=== PATIENT | female | born 1960 | race Caucasian/White ===

== ENCOUNTER 2023-06-03 05:55 | Day surgery (SDC) | payer OTHER ==
[2023-06-02 13:58] LABS: BASOPHILS # (AUTO) 0.1 X10'3 (0-0.2); BASOPHILS % (AUTO) 0.9 % (0-1); EOSINOPHILS # (AUTO) 0.2 X10'3 (0-0.9); EOSINOPHILS % (AUTO) 2.8 % (0-6); HEMATOCRIT 42.5 % (35.0-45.0); HEMOGLOBIN 13.9 g/dl (12.0-16.0); LYMPHOCYTES % (AUTO) 30.5 % (21-51); MEAN CORPUSCULAR HEMOGLOBIN 29.9 PG (27.0-31.0); MEAN CORPUSCULAR HGB CONC 32.8 g/dL (33.0-36.5); MEAN CORPUSCULAR VOLUME 91.1 FL (78-98); MEAN PLATELET VOLUME 8.8 FL (7.4-10.4); MONOCYTES # (AUTO) 0.6 X10'3 (0-0.9); MONOCYTES % (AUTO) 9.7 % (2-12); NEUTROPHILS # (AUTO) 3.6 X10'3 (1.8-7.7); NEUTROPHILS % (AUTO) 56.1 % (42-75); PLATELET COUNT 352 X10'3 (140-440); RED BLOOD COUNT 4.67 X10'6 (4.20-5.60); RED CELL DISTRIBUTION WIDTH 14.4 % (11.5-14.5); WHITE BLOOD COUNT 6.4 X10'3 (4.5-11.0)
[2023-06-02 14:08] LABS: ALBUMIN 3.4 G/DL (3.4-5.0); APTT 26 SECONDS (22-32); BLOOD UREA NITROGEN 15 MG/DL (7-18); BUN/CREATININE RATIO 18.8 (10.0-20.0); CALCIUM 9.5 MG/DL (8.5-10.1); GLUCOSE 107 MG/DL (70-104); PROTHROMBIN TIME 10.4 SECONDS (9.0-12.0); TOTAL CARBON DIOXIDE 28.8 MMOL/L (24-32); eGFR 73 ML/MIN
[2023-06-02 14:16] LABS: ANION GAP 8 (8-16); CHLORIDE 105 MMOL/L (99-107); POTASSIUM 4.1 MMOL/L (3.5-5.1); SODIUM 142 MMOL/L (135-145)
[~2023-06-03] VITALS: Ht 167.6 cm; Wt 104.9 kg
[2023-06-03] VITALS (12 sets, daily range): BP systolic 93–134; BP diastolic 51–70; PULSE 38–51; RESP 10–17; TEMP 97.6; O2SAT 92–96
[2023-06-03] MEDS ORDERED: LORazepam 0.5 MG tablet PO PRN (06:25)
[2023-06-03] MEDS ORDERED: diphenhydrAMINE 25mg capsule PO PRN (06:25)
[2023-06-03] MEDS ORDERED: normal saline 1,000 ML IV SCH (06:25)
[2023-06-03] MEDS ORDERED: OMEP20CA16 PO (06:37)
[2023-06-03] MEDS ORDERED: OXYB15TA19 PO (06:37)
[2023-06-03] MEDS ORDERED: METO25TA6 PO (06:37)
[2023-06-03] MEDS ORDERED: HYDR12.55 PO (06:37)
[2023-06-03] MEDS ORDERED: DOXA2TAB92 PO (06:37)
[2023-06-03] MEDS ORDERED: EZET10TA48 PO (06:37)
[2023-06-03] MEDS ORDERED: ROSU20TA73 PO (06:37)
[2023-06-03] MEDS ORDERED: TRAZ-256 PO (06:37)
[2023-06-03] MEDS ORDERED: GABA-530 PO (06:37)
[2023-06-03] MEDS ORDERED: LEVO25TA7 PO (06:37)
[2023-06-03] MEDS ORDERED: verapamil 2.5 mg/ml inj IV ONE (07:25)
[2023-06-03] MEDS ORDERED: fentaNYL/PF 50MCG/1 ML 2ML syringe ONE (07:26)
[2023-06-03] MEDS ORDERED: midazolam 1 mg/ML 2ml injection ONE (07:26)
[2023-06-03] MEDS ORDERED: iohexol 350 MG/ML 50ML vial IV ONE (07:26)
[2023-06-03] MEDS ORDERED: iohexol 350MG/ML 100ml bottle IV ONE (07:26)
[2023-06-03] MEDS ORDERED: heparin 1,000unit/ml 10ml vial 10 ML ONE (07:26)
[2023-06-03] MEDS ORDERED: nitroGLYCERIN 500mcg/5mL D5W 10 ML IV ONE (07:27)
[2023-06-03] MEDS ORDERED: LIDOcaine 1% (10mg/ml) 2ml vial ONE ×2 (07:31→07:59)
[2023-06-03] MEDS ORDERED: HYDROmorphone 1 mg/ml syringe ONE (08:25)
[2023-06-03 11:36] LABS: ISTAT HGB MIX 12.9 g/dl (12.0-16.0); ISTAT Hct MIX 38 %PCV (35-45); ISTAT O2 SATURATION MIX VENOUS 88 % (60-80); ISTAT SOURCE BLNK
[2023-06-03 11:36] LABS: ISTAT HGB MIX 12.6 g/dl (12.0-16.0); ISTAT Hct MIX 37 %PCV (35-45); ISTAT O2 SATURATION MIX VENOUS 62 % (60-80); ISTAT SOURCE VEN
== END 2023-06-03 14:35 | disposition home or self-care (01) ==
LOC: SSTAY O 05:55
PROVIDERS: ATTEND Internal Medicine Cardiovascular Disease
DX: I34.1 Nonrheumatic mitral (valve) prolapse (principal); I25.10 Atherosclerotic heart disease of native coronary artery without angina pectoris; I10 Essential (primary) hypertension; E78.5 Hyperlipidemia, unspecified; M54.30 Sciatica, unspecified side; Z79.899 Other long term (current) drug therapy; Z79.01 Long term (current) use of anticoagulants; Z98.890 Other specified postprocedural states
CPT/HCPCS: 36415; 76937; 80048; 82803; 85014; 85025; 85610; 85730; 93005; 93460; 99152; 99153; J1170; J1644; J2250; J3010; J3490; J7030; Q0163; Q9967; A6258; A6402; C1725; C1751; C1894

== ENCOUNTER 2024-12-15 06:05 | Day surgery (SDC) | payer OTHER ==
[2024-12-14 15:58] LABS: BASOPHILS # (AUTO) 0.1 X10'3 (0-0.2); BASOPHILS % (AUTO) 0.6 % (0-1); EOSINOPHILS # (AUTO) 0.2 X10'3 (0-0.9); EOSINOPHILS % (AUTO) 2.3 % (0-6); HEMOGLOBIN 13.9 g/dl (12.0-16.0); LYMPHOCYTES # (AUTO) 2.5 X10'3 (1.1-4.8); LYMPHOCYTES % (AUTO) 28.6 % (21-51); MEAN CORPUSCULAR HEMOGLOBIN 29.7 PG (27.0-31.0); MEAN CORPUSCULAR HGB CONC 33.8 g/dL (33.0-36.5); MEAN CORPUSCULAR VOLUME 87.8 FL (78-98); MEAN PLATELET VOLUME 8.5 FL (7.4-10.4); MONOCYTES # (AUTO) 0.8 X10'3 (0-0.9); MONOCYTES % (AUTO) 9.3 % (2-12); NEUTROPHILS # (AUTO) 5.2 X10'3 (1.8-7.7); NEUTROPHILS % (AUTO) 59.2 % (42-75); PLATELET COUNT 313 X10'3 (140-440); RED BLOOD COUNT 4.67 X10'6 (4.20-5.60); RED CELL DISTRIBUTION WIDTH 14.4 % (11.5-14.5); WHITE BLOOD COUNT 8.7 X10'3 (4.5-11.0)
[~2024-12-15] VITALS: Ht 167.6 cm; Wt 108.1 kg
[2024-12-15] VITALS (12 sets, daily range): BP systolic 119–158; BP diastolic 53–68; PULSE 42–64; RESP 14–16; TEMP 97.3; O2SAT 91–94
[~2024-12-15 06:05] MED LIST: DOXA2TAB92 PO; EZET10TA48 PO; GABA-530 PO; HYDR12.55 PO; LEVO25TA7 PO; METO25TA6 PO; OMEP20CA16 PO; OXYB15TA19 PO; ROSU20TA98 PO; TRAZ-256 PO
[2024-12-15] MEDS ORDERED: ceFAZolin 2gm in dextrose, iso 50 ML IV ONE (06:40)
[2024-12-15] MEDS: normal saline 1000ml 1,000 ML IV SCH (07:21)
[2024-12-15 07:22] LABS: ALBUMIN 3.4 G/DL (3.4-5.0); ANION GAP 5 (8-16); APTT 27 SECONDS (22-32); BLOOD UREA NITROGEN 25 MG/DL (7-18); BUN/CREATININE RATIO 37.9 (10.0-20.0); CALCIUM 8.8 MG/DL (8.5-10.1); CHLORIDE 110 MMOL/L (99-107); CREATININE 0.66 MG/DL (0.40-0.90); GLUCOSE 108 MG/DL (70-104); POTASSIUM 4.1 MMOL/L (3.5-5.1); PROTHROMBIN TIME 10.3 SECONDS (9.0-12.0); SODIUM 143 MMOL/L (135-145); eCRCL 82 ML/MIN; eGFR 90 ML/MIN
[2024-12-15] MEDS ORDERED: fentaNYL/PF 50MCG/1 ML 2ML syringe ONE (07:28)
[2024-12-15] MEDS ORDERED: midazolam 1 mg/ML 2ml injection ONE ×2 (07:28→09:09)
[2024-12-15] MEDS ORDERED: ceFAZolin 1000mg inj ONE (07:29)
[2024-12-15] MEDS ORDERED: LIDOcaine 1% W/epiNEPHrine 1:100,000 20ml vial ONE (07:29)
[2024-12-15] MEDS ORDERED: iohexol 350 MG/ML 50ML vial IV ONE (07:29)
[2024-12-15] MEDS ORDERED: diphenhydrAMINE 50 mg/ml inj ONE (08:38)
[2024-12-15] MEDS ORDERED: HYDROcodone/acetaminophen 5mg/325mg tablet PO PRN (10:35)
[2024-12-15] MEDS ORDERED: CEPH-585 PO (10:36)
[2024-12-15] MEDS ORDERED: SOTA80TA26 PO (10:39)
[2024-12-15] MEDS: vancomycin/NS 1 GM ADD-VANTAGE 250 ML X 1 DOSE IV ONE (11:18)
[2024-12-15] MEDS: HYDROcodone/acetaminophen 10/325mg tab PO PRN (13:47)
== END 2024-12-15 16:20 | disposition home or self-care (01) ==
LOC: SSTAY O 06:05
PROVIDERS: ATTEND Internal Medicine Cardiovascular Disease
DX: I49.5 Sick sinus syndrome (principal); I10 Essential (primary) hypertension; E78.5 Hyperlipidemia, unspecified; Z78.0 Asymptomatic menopausal state; Z79.01 Long term (current) use of anticoagulants
CPT/HCPCS: 33208; 36415; 71046; 80048; 85025; 85610; 85730; 93005; 99152; 99153; C1785; C1898; J0690; J1200; J2250; J3010; J3370; J3490; J7030; Q9967; A4565; A4615; A6449

== ENCOUNTER 2025-01-31 13:53 | Inpatient (IN) | payer OTHER ==
[~2025-01-31] VITALS: Ht 167.6 cm; Wt 111.1 kg
[~2025-01-31 13:53] MED LIST changes: -DOXA2TAB92 PO; -OXYB15TA19 PO; +SOTA80TA26 PO
--- NOTE | 2025-01-31 14:21 | Physician Documentation ---
History of Present Illness ~ Chief Complaint: Chest Pain Stated Complaint: CP Time Seen by MD: 14:55 Source: patient, family HPI 64-year-old female History of hyperlipidemia, hypertension, mitral regurgitation, supraventricular tachycardia with sick sinus syndrome status post pacemaker placement December 15, 2024, CAD, strong family history of coronary artery disease presenting for chest pain. She reports pain in her substernal chest described as pressure radiating to her neck and left shoulder. Her sympt oms resolved just prior to arrival and has been intermittent over the last 24 hours Medication Reconciliation Allergies: Coded Allergies: No Known Allergies (Unverified , 01/31/25) Scheduled Ezetimibe (Ezetimibe), 1 TAB PO DAILY, (Reported) Gabapentin (Gabapentin), 1 CAP PO DAILY, (Reported) Hydrochlorothiazide (Hydrochlorothiazide), 12.5 MG PO DAILY, (Reported) Levothyroxine Sodium (Levothyroxine Sodium), 1 TAB PO DAILY, (Reported) Metoprolol Tartrate (Metoprolol Tartrate), 1 TAB PO BID, (Reported) Omeprazole (Omeprazole), 1 CAP PO DAILY, (Reported) Rosuvastatin Calcium (Rosuvastatin Calcium), 1 TAB PO HS, (Reported) Sotalol HCl (Betapace), 0.5 TAB PO Q12H Trazodone HCl (Trazodone HCl), 1 TAB PO HS, (Reported) Review of Systems All Other Systems at this time: Reviewed and Negative Respiratory: Reports: shortness of breath; Denies: cough, orthopnea Cardiovascular: Reports: chest pain Gastrointestinal: Denies: abdominal pain Physical Exam Vital Signs: Temperature: 97.8, Source: Temporal, Heart Rate: 64, Respiratory Rate: 18, BP: 151/46, Pulse Oximetry: 98, Weight: 111.100 Physical Exam Well-appearing no distress resting comfortably in bed No JVD Moist mucous membranes Pulmonary clear to auscultation bilaterally Cardiac no murmur Abdomen is soft nontender Lower extremity no edema Awake alert oriented Progress Results/Orders Reviewed/noted all lab results: Yes Results/Orders Orders - WHIT SHARIF MD Chest,Single View (01/31/25 14:36) Monitor (01/31/25 14:21) Saline Lock (01/31/25 14:21) Oxygen (01/31/25 14:21) Page Hospitalist (01/31/25 17:46) Fill Out Med Reconciliation (01/31/25 17:46) Completed Orders - WHIT SHARIF MD Chest,Single View (01/31/25 14:36) Cbc/Diff (01/31/25 14:21) BMP (01/31/25 14:21) PBNP (01/31/25 14:21) Electrocardiogram (01/31/25 14:21) Hs Troponin I W Calculations (01/31/25 14:21) Hs Troponin I W Calculations (01/31/25 16:21) Hs Troponin I W Calculations (01/31/25 17:21) Vital Signs 01/31/25 01/31/25 01/31/25 01/31/25 14:11 14:39 16:37 17:54 Temp 97.8 Pulse 64 95 60 Resp 18 19 16 17 B/P (MAP) 151/46 130/71 (90) 126/63 (84) Pulse Ox 98 95 93 01/31/25 17:57 Pulse 60 Resp 14 B/P (MAP) 152/68 (96) Pulse Ox 99 Laboratory Tests Test 01/31/25 14:00 01/31/25 16:30 01/31/25 17:27 White Blood Count 10.5 Red Blood Count 4.54 Hemoglobin 13.2 Hematocrit 40.3 Mean Corpuscular Volume 88.9 Mean Corpuscular Hemoglobin 29.1 Mean Corpuscular Hemoglobin Concent 32.7 L Red Cell Distribution Width 14.1 Platelet Count 339 Mean Platelet Volume 8.8 Neutrophils (%) (Auto) 63.8 Lymphocytes (%) (Auto) 25.5 Monocytes (%) (Auto) 7.5 Eosinophils (%) (Auto) 2.8 Basophils (%) (Auto) 0.4 Neutrophils # (Auto) 6.7 Lymphocytes # (Auto) 2.7 Monocytes # (Auto) 0.8 Eosinophils # (Auto) 0.3 Basophils # (Auto) 0.0 CBC Comment Sodium Level 142 Potassium Level 4.0 Chloride Level 105 Carbon Dioxide Level 30.0 Anion Gap 7 L Blood Urea Nitrogen 19 H Creatinine 0.80 Estimated GFR/1.73 m2 72 BUN/Creatinine Ratio 23.8 H Glucose Level 127 H Calcium Level 9.5 Troponin I High Sensitivity 9 9 8 Pro-B-Type Natriuretic Peptide 42 Albumin 3.9 Chemistry Comments Troponin I High Sens Percent Delta 0 11 Troponin I Hi Sens Absolute Change 0 -1 EKG/XRAY/CT/US/VASC/MRI EKG : Additional Comment EKG independently interpreted by myself time 2:03 p.m. indication chest pain normal sinus rhythm rate 65 left axis deviation poor R-wave progression no ST-T abnormalities Chest X-Ray : Additional Comments Chest x-ray independently interpreted by myself shows no pneumothorax no consolidation normal cardiomediastinal silhouette Heart Score: Heart Score Response (Comments) Value History Highly Suspicious 2 EKG Normal 0 Age 45-64 1 Risk Factors >3 or Hx ASHD 2 Total 5 Medical Decision Making Additional info obtained from: old records (Cardiology 11/2024) Additional Information Pulmonary embolism, acute coronary syndrome other causes of chest Departure Disposition: ADMITTED INPATIENT Admitted to Inpatient Unit: to hospitalist Impression: Primary Impression: Moderate risk chest pain Referrals: NO PRIMARY CARE PROVIDER (PCP) Additional Comment Medical Screen Exam History: This 64-year-old female with a history of pacemaker presents with one day of intermittent left-sided chest pain with radiation to left jaw, patient reports no history of [place] Exam: VITALS: Reviewed and as above. GENERAL: Alert, nontoxic appearing, no apparent distress. RESPIRATORY: No increased work of breathing, no respiratory distress, speaking in full clear sentences ACS protocol initiated by nursing staff, MSE performed in triage and patient returned to ED lobby by nursing staff while awaiting available ED room The note accurately reflects work and decisions made by me.SHELLEY Hays 01/31/25 14:21 Signature Scribe Signature: na Attestation: NATHAN Causey Jan 31, 2025 14:21 WHIT SHARIF MD Jan 31, 2025 17:37
--- NOTE | 2025-01-31 14:23 | ELECTROCARDIOGRAPH REPORT ---
[facility] Test Date: 2025-01-31 Test Time: 14:03:51 Pat Name: HARDIK VUONG Department: EMERGENCY ROOM Room: Gender: F Natural Gas Technician: RUEL : 1960 Requested By: WHIT SHARIF Order Number: [id number] Reading MD: Measurements Intervals [place] Rate: 65 P: 31 IA: 172 QRS: -18 QRSD: 91 T: 42 QT: 423 QTc: 440 Interpretive Statements Sinus rhythm Borderline left axis deviation Anteroseptal infarct, old Please click the below link to view image of tracing.
[2025-01-31 14:45] LABS: BASOPHILS % (AUTO) 0.4 % (0-1); EOSINOPHILS # (AUTO) 0.3 X10'3 (0-0.9); EOSINOPHILS % (AUTO) 2.8 % (0-6); HEMATOCRIT 40.3 % (35.0-45.0); HEMOGLOBIN 13.2 g/dl (12.0-16.0); LYMPHOCYTES # (AUTO) 2.7 X10'3 (1.1-4.8); LYMPHOCYTES % (AUTO) 25.5 % (21-51); MEAN CORPUSCULAR HEMOGLOBIN 29.1 PG (27.0-31.0); MEAN CORPUSCULAR HGB CONC 32.7 g/dL (33.0-36.5); MEAN CORPUSCULAR VOLUME 88.9 FL (78-98); MEAN PLATELET VOLUME 8.8 FL (7.4-10.4); MONOCYTES # (AUTO) 0.8 X10'3 (0-0.9); MONOCYTES % (AUTO) 7.5 % (2-12); NEUTROPHILS # (AUTO) 6.7 X10'3 (1.8-7.7); NEUTROPHILS % (AUTO) 63.8 % (42-75); PLATELET COUNT 339 X10'3 (140-440); RED BLOOD COUNT 4.54 X10'6 (4.20-5.60); RED CELL DISTRIBUTION WIDTH 14.1 % (11.5-14.5); WHITE BLOOD COUNT 10.5 X10'3 (4.5-11.0)
--- NOTE | 2025-01-31 14:46 | RADIOLOGY REPORT ---
DI CHEST,SINGLE VIEW, HISTORY: CP COMPARISON: None None TECHNICAL DATA: 1 view of the chest was obtained. FINDINGS: Lines and tubes: A cardiac pacer is seen. Cardiomediastinal silhouette: normal Pulmonary vasculature: normal Lung expansion: normal Lung airspace: normal Lung interstitium: normal Pleura: normal Pneumothorax: no Bones: Unremarkable Other: no IMPRESSION: No acute intrathoracic abnormality.
[2025-01-31 15:09] LABS: ALBUMIN 3.9 G/DL (3.4-5.0); ANION GAP 7 (8-16); BLOOD UREA NITROGEN 19 MG/DL (7-18); BUN/CREATININE RATIO 23.8 (10.0-20.0); CALCIUM 9.5 MG/DL (8.5-10.1); CHLORIDE 105 MMOL/L (99-107); GLUCOSE 127 MG/DL (70-104); PRO BRAIN NATRIURETIC PEPTIDE 42 PG/ML (0-125); SODIUM 142 MMOL/L (135-145); eCRCL 67 ML/MIN; eGFR 72 ML/MIN
[2025-01-31] MEDS ORDERED: acetaminophen 325mg tablet PO PRN ×2 (19:15)
[2025-01-31] MEDS ORDERED: magnesium hydroxide 30ml (MOM) UD suspension PO PRN (19:15)
[2025-01-31] MEDS ORDERED: magnesium sulf-water 2g/50mL 50 ML IV PRN (19:15)
[2025-01-31] MEDS ORDERED: magnesium sulf-water 4G/100mL 100 ML IV PRN (19:15)
[2025-01-31] MEDS ORDERED: morphine 2 MG/ML inj. syringe IV PRN (19:15)
[2025-01-31] MEDS ORDERED: mag hydrox/Alum hydrox/simeth 30ml oral suspension PO PRN (19:15)
[2025-01-31] MEDS ORDERED: HYDROmorphone inj. 0.5 MG/0.5 ML DISP.SYRIN IV PRN (19:15)
[2025-01-31] MEDS ORDERED: potassium Cl 40MEQ/1/2NS 520ml 520 ML IV PRN (19:15)
[2025-01-31] MEDS ORDERED: potassium Cl 20 mEq SR tablet PO PRN ×2 (19:15)
[2025-01-31] MEDS ORDERED: ondansetron/PF 4mg/2ml inj IV PRN (19:15)
[2025-01-31] MEDS ORDERED: magnesium Cl slow-release 64mg tablet PO PRN (19:15)
[2025-01-31 19:47] LABS: HEMOGLOBIN A1C 6.1 % (4.5-6.2)
[2025-01-31] MEDS: docusate sod 100mg capsule PO SCH (20:00)
[2025-01-31] MEDS: K and/or MAG REPLACEMENT MC SCH (20:00)
[2025-01-31 20:09] LABS: APTT 28 SECONDS (22-32); PROTHROMBIN TIME 10.5 SECONDS (9.0-12.0)
[2025-01-31] MEDS ORDERED: metoprolol tartrate 50mg tablet PO ONE (21:15)
[2025-01-31] MEDS: atorvastatin 20mg tablet PO SCH (21:57)
[2025-01-31] MEDS: ezetimibe 10mg tablet PO SCH (21:57)
[2025-01-31 22:00] VITALS: BP 160/61; PULSE 63; RESP 12; RESP 16; TEMP 97.3; O2SAT 92; O2SAT 95
--- NOTE | 2025-01-31 22:47 | HISTORY AND PHYSICAL-Residence ---
History & Physical Providers to CC Resident Creating Document: ANTWAN MCGRATH, ANGELI ~ History of Present Illness Reason for Admit\Complaint: Chest pain History of Present Illness 64-year-old female with past medical history of hypertension, hyperlipidemia, COPD, CAD, atrial fibrillation, status post ppm, with a strong family history of coronary artery disease and hyperlipidemia presented to the ER with chief complaints of chest pain. Endorses chest pain around 1232 to 1:00 p.m. on today while she was driving to home after having a alliance party, heavy, constricting type of pain over retrosternum, rated 7- 8/10, on and off. Chest pain is associated with shortness of breathe while having conversation with her , diaphoresis and radiating to throat and jaw. She denied syncope, palpitations, dizziness abdominal pain, abdominal distention, fever, cough, wheeze. She reports swelling of the left foot occasionally. She do reports strong family history of coronary artery disease- quadruple bypass and stents for mother. Her Father had a bypass graft. Her brother is with five-vessel bypass, heart failure, hereditary hypercholesterolemia. Discussed Code status with patient and she wants to be in full code Allergies: Coded Allergies: No Known Allergies (Unverified , 01/31/25) Home Medications Home Medications Active Betapace (Sotalol HCl) 80 Mg Tablet 0.5 Tab PO Q12H 90 Days Reported Rosuvastatin Calcium 20 Mg Tablet 1 Tab PO HS Ezetimibe 10 Mg Tablet 1 Tab PO DAILY Gabapentin 100 Mg Capsule 1 Cap PO DAILY Hydrochlorothiazide 12.5 Mg Tablet 12.5 Mg PO DAILY Metoprolol Tartrate 25 Mg Tablet 1 Tab PO BID Omeprazole 20 Mg Capsule. 1 Cap PO DAILY Trazodone HCl 100 Mg Tablet 1 Tab PO HS Levothyroxine Sodium 25 Mcg Tablet 1 Tab PO DAILY Past Medical History Past Medical History COPD CAD AFib Sick sinus syndrome, bradycardia Status post ppm(on December 15, 2024 Supraventricular arrhythmia Past Surgical History Surgical History Comment Left knee cartilage repair in 2001 Left shoulder repair in 2019 Cholecystectomy in 2019 Family History Family History: Patient reports no known family medical history. Past Social History Social History Comment One glass of wine every two months Smoking: Non-Smoker Alcohol Use: Occasionally Drug Use: None Lives with: Spouse Lives In: Home ROS All Other Systems: Reviewed and Negative ROS Reviewed in full and negative except positive pertinent as in HPI Respiratory: Reports: shortness of breath; Denies: cough, orthopnea Cardiovascular: Reports: chest pain Gastrointestinal: Denies: abdominal pain Exam Vitals: Vital Signs Date Time Temp Pulse Resp B/P (MAP) Pulse Ox O2 Delivery O2 Flow Rate FiO2 01/31/25 22:30 64 01/31/25 20:00 13 129/61 (83) 93 0 01/31/25 14:11 97.8 General: GENERAL: Awake, alert, oriented, GCS 15, no apparent distress, non-toxic appearing, answers questions, follows commands appropriately. HEENT: Atraumatic, normocephalic, pupils equal, extraocular muscles intact, sclerae anicteric, mucus membranes moist, oropharynx is clear, no stridor. NECK: supple, full active range of motion, trachea midline, no thyromegaly, no lymphadenopathy, no JVD. CARDIOVASCULAR: Tachycardic and regular rate/rhythm, no murmurs/gallops/rubs, Pulses are 2+ in all extremities and symmetric. Capillary refill less than 2 seconds. PULMONARY: Nonlabored, good air movement ,no respiratory distress, speaking in full sentences, clear to auscultation bilaterally, no wheezing, no ronchi, no rales, no accessory muscle use. GASTROINTESTINAL: Soft, non-tender, non-distended, normal active bowel sounds, no organomegaly, no pulsatile masses, no CVA tenderness. NEUROLOGIC: Normal facial symmetry. Moves all extremities symmetrically and with purpose. No truncal ataxia. Speech is fluid without evidence of dysarthria or aphasia, no focal deficits appreciated. MUSCULOSKELETAL: There is full range of motion of all extremities. There is no joint pain or joint swelling or joint erythema. There is no muscle pain or tenderness or swelling. EXTREMITIES: warm, well-perfused, no cyanosis, no clubbing, no edema, no acute deformities. Skin: warm, dry, no rashes or lesions, no jaundice, no petechiae orpurpura. No ecchymosis. PSYCHIATRIC: Normal affect, normal insight, normal concentration. Diagnostic Data Last Recorded Lab Results: 01/31/25 1400 01/31/25 1400 Diagnostic Data: Laboratory Tests Test 01/31/25 19:44 Prothrombin Time 10.5 SECONDS (9.0-12.0) INR International Normalized Ratio 1.0 INR Activated Partial Thromboplast Time 28 SECONDS (22-32) Coagulation Comments Advance Care Planning Advanced Care planning: Add on additional 30 min Additional Plan Acute coronary syndrome-Unstable angina Heart score of six Blood pressure is in 140s Heart rate is in 60s CBC and CMP is normal EKG does not showed STEMI, troponins are negative and proBNP is normal On aspirin 81 mg, metoprolol 25 mg, atorvastatin 80 mg, ezetimibe 10 mg, morphine p.r.n., nitro 0.4 mg sublingual p.r.n. Consult manager etl in the a.m. for Lexiscan / Cardiac catheterization in view of past history of coronary artery disease with very strong family history Hyperlipidemia Possible familial hypercholesterolemia/ hypertriglyceridemia Strong family history of hyperlipidemia Ordered lipid panel Continued ezetimibe 10 mg and atorvastatin 80 mg Hypertension On metoprolol 25 mg p.o. b.i.d. Blood pressure is normalizing to 120s Hypothyroidism TSH is ordered and on home medications of levothyroxine 25 mg Peripheral neuropathy We will continue gabapentin 100 mg p.o. daily after medication reconciliation COPD Not in acute exacerbation she is not using any inhalers CAD Atrial fibrillation status post ppm On home medications of sotalol 40 mg p.o. q.12h on metoprolol 25 mg p.o. b.i.d. Continuing both sotalol and metoprolol Heart rate is controlled Code status: Full code DVT prophylaxis: Heparin subQ Diet: Heart healthy diet PT: Ordered Prognosis: Guarded Antwan RODGERS resident Date of Service: Jan 31, 2025 Billing Provider: VANDANA HEADLEY MD Common Visit Codes: [id number] INP/OBS CARE (HIGH) Assessment/Plan Assessment . Evaluated the patient with the help of residents. Discussed the case with them. Reviewed notes by Dr.Suragani MUNOZ. Agree with his assessments and plans I also reviewed the patient's records. No additional points at this time ANTWAN MCGRATH, ANGELI Jan 31, 2025 22:47 VANDANA HEADLEY MD Feb 01, 2025 06:19
[2025-02-01] VITALS (14 sets, daily range): BP systolic 115–182; BP diastolic 50–84; PULSE 60–75; RESP 16–20; TEMP 97–98.4; O2SAT 92–98
[2025-02-01] MEDS: metoprolol tartrate 25mg tablet PO SCH (02:07)
[2025-02-01] MEDS: heparin, porcine 5000 units/ml vial SQ SCH (02:08)
[2025-02-01] MEDS ORDERED: nitroGLYCERIN 0.4mg SUBLingual tab SL PRN ×2 (04:20→08:20)
[2025-02-01 06:59] LABS: BASOPHILS % (AUTO) 0.4 % (0-1); EOSINOPHILS # (AUTO) 0.3 X10'3 (0-0.9); EOSINOPHILS % (AUTO) 3.7 % (0-6); HEMATOCRIT 37.9 % (35.0-45.0); HEMOGLOBIN 12.6 g/dl (12.0-16.0); LYMPHOCYTES # (AUTO) 2.2 X10'3 (1.1-4.8); LYMPHOCYTES % (AUTO) 32.3 % (21-51); MEAN CORPUSCULAR HEMOGLOBIN 29.4 PG (27.0-31.0); MEAN CORPUSCULAR HGB CONC 33.1 g/dL (33.0-36.5); MEAN CORPUSCULAR VOLUME 88.9 FL (78-98); MEAN PLATELET VOLUME 8.5 FL (7.4-10.4); MONOCYTES # (AUTO) 0.6 X10'3 (0-0.9); MONOCYTES % (AUTO) 9.3 % (2-12); NEUTROPHILS # (AUTO) 3.7 X10'3 (1.8-7.7); NEUTROPHILS % (AUTO) 54.3 % (42-75); PLATELET COUNT 304 X10'3 (140-440); RED BLOOD COUNT 4.27 X10'6 (4.20-5.60); WHITE BLOOD COUNT 6.8 X10'3 (4.5-11.0)
[2025-02-01 07:35] LABS: ALANINE AMINOTRANSFERASE 54 U/L (12-78); ALBUMIN 3.4 G/DL (3.4-5.0); ALBUMIN/GLOBULIN RATIO 1.1 (1.1-1.5); ALKALINE PHOSPHATASE 84 IU/L (46-116); ANION GAP 9 (8-16); ASPARTATE AMINO TRANSFERASE 28 U/L (10-37); BILIRUBIN,TOTAL 0.6 MG/DL (0.1-1.0); BLOOD UREA NITROGEN 19 MG/DL (7-18); BUN/CREATININE RATIO 25.7 (10.0-20.0); CHLORIDE 107 MMOL/L (99-107); CHOL/HDL RATIO 3.1 (0.00-4.99); CHOLESTEROL 152 MG/DL (0-200); CREATININE 0.74 MG/DL (0.40-0.90); GLUCOSE 98 MG/DL (70-104); HDL CHOLESTEROL 49 MG/DL (35-60); LDL CHOLESTEROL 68 MG/DL (50-100); MAGNESIUM 1.9 MG/DL (1.5-2.4); POTASSIUM 4.1 MMOL/L (3.5-5.1); SODIUM 144 MMOL/L (135-145); THYROID STIMULATING HORMONE 2.87 ulU/ml (0.34-4.50); TOTAL CARBON DIOXIDE 28.2 MMOL/L (24-32); TOTAL PROTEIN 6.6 G/DL (6.4-8.2); TRIGLYCERIDES 169 MG/DL (20-135); eCRCL 73 ML/MIN; eGFR 79 ML/MIN
[2025-02-01] MEDS: aspirin 81mg, enteric-coated 1 TAB TABLET.DR PO SCH (07:54)
[2025-02-01] MEDS: levoTHYROXINE 25mcg tablet PO SCH (07:54)
[2025-02-01] MEDS: atorvastatin 20mg tablet PO SCH (07:54)
[2025-02-01] MEDS ORDERED: DOXA2TAB92 PO (08:02)
[2025-02-01] MEDS ORDERED: HYDR-3964 PO (08:02)
[2025-02-01] MEDS ORDERED: NAPR-56 PO (08:12)
[2025-02-01] MEDS ORDERED: metoprolol tartrate 1mg/ml inj IV PRN (08:20)
[2025-02-01] MEDS ORDERED: aminophylline 500mg/20ml vial IV PRN (08:20)
[2025-02-01] MEDS: sotalol HCl 40mg (1/2 tablet) PO SCH (08:52)
[2025-02-01] MEDS: regadenoson 0.4mg/5ml syringe IV PRN (14:05)
--- NOTE | 2025-02-01 16:38 | PROGRESS NOTE- Residence ---
Progress Note - Resident Providers to CC Resident Creating Document: SYDNIE MENDOZA RES ~ Antibiotic Timeout Antibiotic Ordered?: No Subjective Patient seen and examined at bedside. Denies significant chest pains, diaphoresis, fevers/chills, nasal congestion, expectoration, palpitations, or weight loss/weight gain. Yesterday when she had the episode of chest pain, was associated with shortness of breath. prior episodes in the past, does not drink or smoke. Awaiting Lexiscan. Objective Vital Signs Date Time Temp Pulse Resp B/P (MAP) Pulse Ox O2 Delivery O2 Flow Rate FiO2 02/01/25 16:15 92 Room Air* 0 21 02/01/25 14:13 60 18 137/61 02/01/25 11:00 98.4 Result Diagram: 02/01/2562202/01/25622 General: Awake and Alert, no acute distress. HEENT: Conjunctiva pink, Sclera clear, Mucus Membranes moist. Neck: Supple without masses and tenderness. Resp: Unlabored. Equal breath sounds bilaterally. Heart: Regular rhythm, normal S1 and S2, no rub, murmur or gallop. Abdomen: Soft and non tender no organomegaly. Normal bowel sounds x4 quadrant normoactive. No guarding or rigidity. Extremities: Normal ROM, no swelling, nontender. No cyanosis,clubbing or edema. AIRCRAFT ENGINE TECHNICIAN: No gross motor or sensory abnormalities. Skin: Warm and Dry. Coagulation Studies Laboratory Tests Test 01/31/25 19:44 Prothrombin Time 10.5 SECONDS (9.0-12.0) INR International Normalized Ratio 1.0 INR Activated Partial Thromboplast Time 28 SECONDS (22-32) Coagulation Comments Assessment Assessment 64-year-old female with history of hypertension, bradycardia status post pacemaker presented to the ED with chief complaints of chest pain. Plan Plan Nonspecific chest pain Less likely cardiac Blood pressure is in 140s Heart rate is in 60s CBC and CMP is normal EKG does not showed STEMI, troponins are negative and proBNP is normal On aspirin 81 mg, metoprolol 25 mg, atorvastatin 80 mg, ezetimibe 10 mg, morphine p.r.n., nitro 0.4 mg sublingual p.r.n. 02/01/2025 LDL 68, triglycerides 169 A1c 6.1 Troponins negative, EKG does not show any ST/T-wave changes Continue aspirin beta nicolas and statin Echo done, awaiting results Awaiting Lexiscan Hyperlipidemia Possible familial hypercholesterolemia/ hypertriglyceridemia Strong family history of hyperlipidemia Continued ezetimibe 10 mg and atorvastatin 80 mg Hypertension On metoprolol 25 mg p.o. b.i.d. Hypothyroidism levothyroxine 25 mg Peripheral neuropathy We will continue gabapentin 100 mg p.o. daily CAD Atrial fibrillation status post ppm On home medications of sotalol 40 mg p.o. q.12h on metoprolol 25 mg p.o. b.i.d. Continuing both sotalol and metoprolol Heart rate is controlled Code status: Full code DVT prophylaxis: Heparin subQ Diet: Heart healthy diet PT: Ordered Prognosis: Guarded Disposition: Continue medical management Sydnie Mendoza IM Resident PGY 2 Date of Service: Feb 01, 2025 Billing Provider: PHILIP MACKENZIE MD Common Visit Codes: [id number] INP/OBS CARE(HIGH) SDYNIE MENDOZA, RES Feb 01, 2025 16:38 PHILIP MACKENZIE MD Feb 02, 2025 08:13
--- NOTE | 2025-02-01 18:36 | CARDIOLOGY REPORT ---
APPROVED REPORT EXAM: Comprehensive 2D, Doppler, and color-flow Echocardiogram. Patient Location: [address] Blood Pressure: 182/71 mmHg Heart Rate: 60 bpm Rhythm: SINUS Indications CHEST PAIN HYPERTENSION HYPERLIPIDEMIA COPD CORONARY ARTERY DISEASE ATRIAL FIBRILLATION S/P PACEMAKER 12/15/24 Tool Machine Setup Operator: Annita Reid MD Previous echo: none 2D Dimensions RVDd 4.5 cm LA Diam5.5 cm IVSd 1.3 (0.7-1.1cm) LVDd 4.2 cm PWd 1.1 (0.7-1.1cm) IVSs 1.6 (0.8-1.2cm) RA Minor5.0 cmLVDs 2.8 (2.5-4.0cm) PWs 1.3 (0.8-1.2cm) LVOT Diameter 1.98 (1.8-2.4cm) LVEF(%) 63.6 (>50%) Ao Asc Diam.3.07 cm IVC 22.98 mmFS (%) 34.2 % SV 51.4 ml CO 3.1 L/min M-Mode Dimensions Left Atrium(MM) 4.05 (2.5-4.0cm) Aortic Root 3.11 (2.2-3.7cm) Aortic Cusp Exc 2.06 (1.5-2.0cm) MV EPSS 0.2 (<0.5cm) Biplane 2D LA Volumes LA ESV Index 26.14 mL/m2 Aortic Valve AoV Peak Emmett. 137.2 cm/s AoV VTI 36.7 cm AO Peak GR. 7.5 mmHg AO Mean GR. 4 mmHg LVOT VTI 24.63 cm LVOT Peak Emmett. 98.8 cm/s ALEENA(VTI)/BSA 2.06 cm2/m2 ALEENA (VTI) 2.06 cm2 Mitral Valve MV E Velocity 59.2 cm/s MV Peak Gr. 2 mmHg MV DECEL TIME 372 ms MV A Velocity 93.0 cm/s MV PHT 72 ms E/A Ratio 0.6 MVA (PHT) 3.06 cm2 MV VMax74.7 cm/s TDI Medial E' P. V 5.75 cm/s E/Medial E' 10.3 Tricuspid Valve TR P. Velocity 225 cm/s RAP ESTIMATE 5 mmHg TR Peak Gr. 20 mmHg RVSP 25 mmHg Pulmonary Vein S1 Velocity 41.3 cm/s D2 Velocity 48.6 cm/s PVa Ofvuzumw34.7 cm/s PVa [id number] msec LEFT VENTRICLE Normal LV size and function. Mild concentric hypertrophy. LVEF is 60-65%. RIGHT VENTRICLE RV is moderately dilated in size with normal function. Pacemaker wire in right heart. ATRIA LA size is normal. AORTIC VALVE Trileaflet AV appears mildly sclerotic without stenosis or insufficiency. MITRAL VALVE Mild MV annular calcification without stenosis. Trivial regurgitation. TRICUSPID VALVE TV appears structurally normal with trace regurgitation. PULMONIC VALVE Normal PV without stenosis, physiologic insufficiency. GREAT VESSELS Aortic root is normal in size. Ascending aorta is normal in size. IVC is dilated and collapses greate r than 50% with inspiration. PERICARDIUM Normal pericardium. No effusion. Other Information Study Quality: Adequate Conclusion Normal LV size and function. Mild concentric hypertrophy. LVEF is 60-65%. RV is moderately dilated in size with normal function. Pacemaker wire in right heart. LA size is normal. Trileaflet AV appears mildly sclerotic without stenosis or insufficiency. Mild MV annular calcification without stenosis. Trivial regurgitation. TV appears structurally normal with trace regurgitation. Normal pericardium. No effusion.
--- NOTE | 2025-02-01 19:49 | RADIOLOGY REPORT ---
Procedure: NM NM PRAVEEN SCAN Exam Date: 02/01/2025 01:25 PM Reason for study/Clinical History: cp Comparison Study: None Myocardial Perfusion Study with SPECT Technique: The patient received an intravenous injection of 8 mCi of technetium-99m sestamibi while at rest. After a short delay, SPECT tomographic images of the heart were obtained. The patient then went to the stress lab where they received an intravenous infusion of 0.4 mg lexiscan utilizing lexi dard protocol. 33 mCi of technetium-99m sestamibi was injected intravenously immediately after the start of the lexiscan infusion. Gated SPECT tomographic images of the heart were acquired and proces sed. Findings: Reversible anterior wall defect more pronounced near the apical region End diastolic volume: 99 mL End systolic volume: 38 mL The left ventricular ejection fraction is 62 %. (normal greater than 50%) Impression: 1. Reversible defect of the anterior wall, most pronounced near the apical region. 2. Lvef 62 % .
[2025-02-01] MEDS ORDERED: sotalol HCl 40mg (1/2 tablet) PO SCH (20:00)
[2025-02-01] MEDS ORDERED: metoprolol tartrate 25mg tablet PO SCH (20:00)
[2025-02-01] MEDS: traZODone 50mg tablet PO SCH (20:28)
[2025-02-01] MEDS ORDERED: atorvastatin 20mg tablet PO SCH (21:00)
[2025-02-02] VITALS (12 sets, daily range): BP systolic 94–138; BP diastolic 50–68; PULSE 55–81; RESP 12–20; TEMP 97.1–98.8; O2SAT 85–97
[2025-02-02 06:42] LABS: BASOPHILS # (AUTO) 0.1 X10'3 (0-0.2); BASOPHILS % (AUTO) 0.8 % (0-1); EOSINOPHILS # (AUTO) 0.2 X10'3 (0-0.9); EOSINOPHILS % (AUTO) 3.4 % (0-6); HEMATOCRIT 39.3 % (35.0-45.0); HEMOGLOBIN 13.2 g/dl (12.0-16.0); LYMPHOCYTES # (AUTO) 1.8 X10'3 (1.1-4.8); LYMPHOCYTES % (AUTO) 25.7 % (21-51); MEAN CORPUSCULAR HEMOGLOBIN 29.6 PG (27.0-31.0); MEAN CORPUSCULAR HGB CONC 33.7 g/dL (33.0-36.5); MEAN CORPUSCULAR VOLUME 87.8 FL (78-98); MEAN PLATELET VOLUME 8.5 FL (7.4-10.4); MONOCYTES # (AUTO) 0.6 X10'3 (0-0.9); MONOCYTES % (AUTO) 8.6 % (2-12); NEUTROPHILS # (AUTO) 4.3 X10'3 (1.8-7.7); NEUTROPHILS % (AUTO) 61.5 % (42-75); PLATELET COUNT 307 X10'3 (140-440); RED BLOOD COUNT 4.48 X10'6 (4.20-5.60); RED CELL DISTRIBUTION WIDTH 13.9 % (11.5-14.5); WHITE BLOOD COUNT 6.9 X10'3 (4.5-11.0)
[2025-02-02 07:13] LABS: ALANINE AMINOTRANSFERASE 53 U/L (12-78); ALBUMIN 3.5 G/DL (3.4-5.0); ALKALINE PHOSPHATASE 94 IU/L (46-116); ANION GAP 9 (8-16); ASPARTATE AMINO TRANSFERASE 28 U/L (10-37); BILIRUBIN,TOTAL 0.6 MG/DL (0.1-1.0); BLOOD UREA NITROGEN 17 MG/DL (7-18); BUN/CREATININE RATIO 22.7 (10.0-20.0); CALCIUM 9.4 MG/DL (8.5-10.1); CHLORIDE 107 MMOL/L (99-107); CREATININE 0.75 MG/DL (0.40-0.90); GLUCOSE 110 MG/DL (70-104); MAGNESIUM 1.9 MG/DL (1.5-2.4); POTASSIUM 4.1 MMOL/L (3.5-5.1); SODIUM 144 MMOL/L (135-145); TOTAL CARBON DIOXIDE 28.3 MMOL/L (24-32); TOTAL PROTEIN 6.9 G/DL (6.4-8.2); eCRCL 72 ML/MIN; eGFR 78 ML/MIN
[2025-02-02] MEDS: gabapentin 100mg capsule PO SCH (07:50)
[2025-02-02] MEDS: pantoprazole 40mg Tablet.DR PO SCH (07:51)
[2025-02-02] MEDS ORDERED: OXYB15TA19 PO (07:56)
[2025-02-02] MEDS ORDERED: levoTHYROXINE 25mcg tablet PO SCH (08:00)
[2025-02-02] MEDS ORDERED: ezetimibe 10mg tablet PO SCH (08:00)
[2025-02-02] MEDS: normal saline 1000ml 1,000 ML IV SCH (12:49)
[2025-02-02] MEDS ORDERED: midazolam 1 mg/ML 2ml injection ONE ×2 (13:38→15:02)
[2025-02-02] MEDS ORDERED: iohexol 350MG/ML 100ml bottle IV ONE (13:38)
[2025-02-02] MEDS ORDERED: fentaNYL/PF 50MCG/1 ML 2ML syringe ONE ×2 (13:38→15:20)
[2025-02-02] MEDS ORDERED: LIDOcaine 1% 30ml preserv. free vial ONE (13:38)
[2025-02-02] MEDS ORDERED: iohexol 350 MG/ML 50ML vial IV ONE (13:38)
--- NOTE | 2025-02-02 14:46 | CONSULTATION REPORT ---
Cardiac Consultation Report Providers to CC ~ Subjective Subjective Cardiology consultation: 64-year-old female presented with anginal chest pain to the emergency room troponins not elevated she had anterior wall reversible ischemia nuclear stress testing. He did experience chest pressure tightness during it. On 12/15/2024 she had a permanent pacemaker placed for sick sinus syndrome slow heart rate by Dr. Monet mostly. Proximal year and a half ago she recalls having had a heart catheterization with multiple 40 60% narrowings in different vessels. Chest pain event occurred she was driving her car. Her daughter convinced her to go to the emergency room. Due to her insurance her care is greater than [place] of town. She does see Dr. Monet mostly with respect to cardiology. Medications Betapace rosuvastatin ezetimibe gabapentin hydroxychloroquine thiazide metoprolol omeprazole trazodone and levothyroxine. Surgical status post left cartilage repair left shoulder repair cholecystectomy. She does not smoke does not use alcohol. Objective Vitals Vital Signs Date Time Temp Pulse Resp B/P (MAP) Pulse Ox O2 Delivery O2 Flow Rate FiO2 02/02/25 08:00 Room Air 02/02/25 07:50 63 02/02/25 07:00 98.8 15 138/64 (88) 97 02/01/25 16:15 0 21 Lab Results: 02/02/25 0600 02/02/25 0600 Objective Carotid no bruit chest clear to auscultation percussion heart no murmur no S3 gallop no rub abdomen active bowel sounds no bruits pulses plus two upper and lower extremities. Ocular motion intact no nystagmus no tremors speech fluent. Coagulation Studies Laboratory Tests Test 01/31/25 19:44 Prothrombin Time 10.5 SECONDS (9.0-12.0) INR International Normalized Ratio 1.0 INR Activated Partial Thromboplast Time 28 SECONDS (22-32) Coagulation Comments Problem\Assessment\Plan Additional Plan Impression: Coronary insufficiency anterior wall reversible ischemia with angina pectoris. Troponins normal. She appears to have had progression at least in one vessel. Recommendation diagnostic coronary angiography as she is already known to have multivessel art coronary artery disease by history risks include and not restricted to stroke myocardial infarction renal failure neurologic vascular complications bleeding complications allergic reaction. Intervention as may be needed. JEFF HUERTAS MD Feb 02, 2025 14:46
[2025-02-02] MEDS ORDERED: diphenhydrAMINE 50 mg/ml inj ONE (14:48)
[2025-02-02] MEDS ORDERED: nitroGLYCERIN 500mcg/5mL D5W 5 ML IV ONE (14:59)
[2025-02-02] MEDS ORDERED: hydrALAZINE 20mg/ml inj. ONE (15:06)
[2025-02-02] MEDS ORDERED: ondansetron/PF 4mg/2ml inj ONE (15:23)
--- NOTE | 2025-02-02 16:27 | PROGRESS NOTE- Residence ---
Progress Note - Resident Providers to CC Resident Creating Document: SYDNIE MENDOZA RES ~ Antibiotic Timeout Antibiotic Ordered?: No Subjective Patient seen and examined at bedside. Complaints of chest pain/pressure this morning. Discussed Lexiscan results with her, findings positive Dr. Shultz consulted, appreciate recommendations Objective Vital Signs Date Time Temp Pulse Resp B/P (MAP) Pulse Ox O2 Delivery O2 Flow Rate FiO2 02/02/25 08:00 Room Air 02/02/25 07:50 63 02/02/25 07:00 98.8 15 138/64 (88) 97 02/01/25 16:15 0 21 Result Diagram: 02/02/25 0602/02/25 06 General: Awake and Alert, no acute distress. HEENT: Conjunctiva pink, Sclera clear, Mucus Membranes moist. Neck: Supple without masses and tenderness. Resp: Unlabored. Equal breath sounds bilaterally. Heart: Regular rhythm, normal S1 and S2, no rub, murmur or gallop. Abdomen: Soft and non tender no organomegaly. Normal bowel sounds x4 quadrant normoactive. No guarding or rigidity. Extremities: Normal ROM, no swelling, nontender. No cyanosis,clubbing or edema. 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 Skin: Warm and Dry. Coagulation Studies Laboratory Tests Test 01/31/25 19:44 Prothrombin Time 10.5 SECONDS (9.0-12.0) INR International Normalized Ratio 1.0 INR Activated Partial Thromboplast Time 28 SECONDS (22-32) Coagulation Comments Assessment Assessment 64-year-old female with history of hypertension, bradycardia status post pacemaker presented to the ED with chief complaints of chest pain. Plan Plan Unstable angina, positive stress test Blood pressure is in 140s Heart rate is in 60s CBC and CMP is normal EKG does not showed STEMI, troponins are negative and proBNP is normal On aspirin 81 mg, metoprolol 25 mg, atorvastatin 80 mg, ezetimibe 10 mg, morphine p.r.n., nitro 0.4 mg sublingual p.r.n. 02/01/2025 LDL 68, triglycerides 169 A1c 6.1 Troponins negative, EKG does not show any ST/T-wave changes Continue aspirin beta nicolas and statin Echo done, awaiting results Awaiting Lexiscan 02/02/2025 Lexiscan shows a apical reversible defect, EF 60-65% Consulted Dr. Shultz, appreciate recommendations Recommended Heart catheterization She states that she had the Franchesca can done last year which did show that there was some narrowing and she was being followed by Dr. Reid. She also had coronary angiogram done by Dr. Reid in the past with no PCI. Hyperlipidemia Possible familial hypercholesterolemia/ hypertriglyceridemia Strong family history of hyperlipidemia Continued ezetimibe 10 mg and atorvastatin 80 mg Hypertension On metoprolol 25 mg p.o. b.i.d. Hypothyroidism levothyroxine 25 mg Peripheral neuropathy We will continue gabapentin 100 mg p.o. daily CAD Atrial fibrillation status post ppm On home medications of sotalol 40 mg p.o. q.12h on metoprolol 25 mg p.o. b.i.d. Continuing both sotalol and metoprolol Heart rate is controlled Code status: Full code DVT prophylaxis: Heparin subQ Diet: Heart healthy diet PT: Ordered Prognosis: Guarded Disposition: Continue medical management Sydnie Mendoza IM Resident PGY 2 Date of Service: Feb 02, 2025 Billing Provider: PHILIP MACKENZIE MD Common Visit Codes: [id number] INP/OBS CARE(HIGH) SYDNIE MENDOZA, RES Feb 02, 2025 16:27 PHILIP MACKENZIE MD Feb 03, 2025 08:03
[2025-02-02] MEDS ORDERED: proCHLORperazine 10 MG/2 ml inj IV PRN (17:35)
[2025-02-02] MEDS ORDERED: OXAZEpam 15mg capsule PO PRN (17:35)
[2025-02-02] MEDS ORDERED: HYDROcodone/acetaminophen 5mg/325mg tablet PO PRN (17:35)
[2025-02-02] MEDS: HYDROcodone/acetaminophen 10/325mg tab PO PRN (17:40)
--- NOTE | 2025-02-02 17:46 | CARDIAC CATH REPORT ---
Cardiology Post Cath Findings Findings Findings: Cardiology post catheterization note: Uncomplicated left heart catheterization coronary artery angiography left ventriculography Angio-Seal application. Abnormal nuclear stress test anterior portion of myocardium. Hospitalized for chest pain troponins normal. Scattered 15 20% narrowing in coronaries. No high-grade stenoses. False- positive nuclear stress test. Normal left ventriculogram. Recommendation discharge in a.m. at your convenience for follow up with her primary care. Her usual chiropractic assistant is JEFF Hawley MD Feb 02, 2025 17:46
--- NOTE | 2025-02-02 19:59 | CARDIOLOGY REPORT ---
DATE OF SERVICE: 02/02/2025 DICTATING PHYSICIAN: Nelson Shultz MD PROCEDURES: * Left heart catheterization. * Left ventriculography. * Selective left and right coronary arteriography. * Right iliofemoral arteriogram and Angio-Seal application. * Conscious sedation administration 30 minutes. BRIEF HISTORY AND INDICATION: A 64-year-old female, while driving, had chest pain and shortness of breath, was induced to go to the Emergency Room, where she was hospitalized, had normal troponins, and had a Lexiscan with anterior apical reversible ischemia. She had associated chest pressure, which may or may not have been angina during the Lexiscan. On 12/15/2024, she had a permanent pacemaker, paroxysmal atrial fibrillation and sick sinus syndrome. She has treated hypertension, hypothyroidism, rheumatoid arthritis, major depressive disorder and generalized anxiety disorder. Risks, benefits and alternatives of diagnostic heart catheterization were discussed with her, and she has decided to proceed. Risks included, but were not restricted to , stroke, myocardial infarction, renal failure, neurologic and vascular complication, bleeding complications, and allergic reaction. TECHNIQUE: Following the usual sterile preparation and draping, the right groin was infiltrated with 10 mL of 1% lidocaine and local anesthetic. Conscious sedation was achieved with 3 mg of Versed, 4 mg of Zofran, and 150 mcg of fentanyl. Intraarterial nitroglycerin 200 mcg was required for blood pressure control. Apresoline 10 mg intravenously was required for blood pressure control. Following single wall puncture technique, J-tip guidewire lead, a 6-Romansh sheath was introduced to the right femoral artery. Selective left and right coronary arteriography and multiple projectional obliquities were performed with 6-Romansh femoral left 4, right 4, Rebecca-shaped catheters. Left ventriculography in right anterior oblique projection with a straight pigtail was performed. Catheter exchanges were under fluoroscopic guidance and J-tip guidewire lead. At termination, right iliofemoral arteriogram was performed. Hemostasis was obtained with Angio-Seal. Peripheral pulses intact. There were no complications. 90 mL of Omnipaque-350 contrast was administered. Fluoroscopy time was 2 minutes. Radiation exposure was 7531 cGy per cm2. FINDINGS: 5 feet 6 inches, 245 pounds, 64-year-old female. AO 151/66. LV 151/6-10. LEFT VENTRICULOGRAM: Normal left ventriculogram, normal contractility. Ejection fraction 66%. CORONARY ARTERIES: There was a very short left main providing left anterior descending and diagonal branches. 15% proximal left anterior descending, scattered 10% narrowing in the left anterior descending diagonal. Left circumflex provides first to obtuse marginal and posterolateral branches. There were scattered 10% narrowings. Large tortuous right coronary provides a posterior descending that wraps around the apex of the myocardium, small distal left circumflex. Proximal right coronary has a 15% narrowing. RESULTS: * Normal left ventriculogram, ejection fraction of 66%. * Very short left main coronary artery. * 15% proximal left anterior descending scattered 10% narrowing. * Scattered 10% narrowings in left circumflex and side branches. * Proximal 15% right coronary posterior descending wraps around the apex of the myocardium. COMMENT: The patient has false positive nuclear stress test to the apical portion of the myocardium. She has a minimal 10 and 15% cholesterol plaquing in her coronary arteries. The episode in the car may have been an anxiety/stress reaction. Nelson Shultz MD TID: [id number] RECEIPT: [id number] TR/DONN cc: LILIANA Reid MD(User)
[2025-02-02] MEDS: morphine 2 MG/ML inj. syringe IV ONE (21:20)
[2025-02-02] MEDS: cyclobenzaprine 10mg tablet PO ONE (21:58)
[2025-02-03 02:00] VITALS: BP 120/54; PULSE 62; RESP 18; TEMP 97.6; O2SAT 93
[2025-02-03 06:00] VITALS: BP 112/54; PULSE 99; RESP 18; TEMP 97.1; O2SAT 91
[2025-02-03 06:05] LABS: BASOPHILS % (AUTO) 0.3 % (0-1); EOSINOPHILS # (AUTO) 0.2 X10'3 (0-0.9); EOSINOPHILS % (AUTO) 1.8 % (0-6); HEMATOCRIT 35.4 % (35.0-45.0); HEMOGLOBIN 11.6 g/dl (12.0-16.0); LYMPHOCYTES # (AUTO) 2.1 X10'3 (1.1-4.8); LYMPHOCYTES % (AUTO) 20.3 % (21-51); MEAN CORPUSCULAR HEMOGLOBIN 29.2 PG (27.0-31.0); MEAN CORPUSCULAR HGB CONC 32.9 g/dL (33.0-36.5); MEAN CORPUSCULAR VOLUME 88.7 FL (78-98); MEAN PLATELET VOLUME 8.2 FL (7.4-10.4); MONOCYTES # (AUTO) 1.1 X10'3 (0-0.9); MONOCYTES % (AUTO) 10.8 % (2-12); NEUTROPHILS % (AUTO) 66.8 % (42-75); PLATELET COUNT 287 X10'3 (140-440); RED BLOOD COUNT 3.99 X10'6 (4.20-5.60); WHITE BLOOD COUNT 10.5 X10'3 (4.5-11.0)
[2025-02-03 06:23] LABS: ALANINE AMINOTRANSFERASE 43 U/L (12-78); ALBUMIN 3.1 G/DL (3.4-5.0); ALBUMIN/GLOBULIN RATIO 1.1 (1.1-1.5); ALKALINE PHOSPHATASE 81 IU/L (46-116); ANION GAP 6 (8-16); ASPARTATE AMINO TRANSFERASE 21 U/L (10-37); BILIRUBIN,TOTAL 0.7 MG/DL (0.1-1.0); BLOOD UREA NITROGEN 17 MG/DL (7-18); CALCIUM 8.8 MG/DL (8.5-10.1); CHLORIDE 107 MMOL/L (99-107); CREATININE 0.85 MG/DL (0.40-0.90); GLUCOSE 105 MG/DL (70-104); MAGNESIUM 1.8 MG/DL (1.5-2.4); POTASSIUM 4.3 MMOL/L (3.5-5.1); SODIUM 144 MMOL/L (135-145); TOTAL CARBON DIOXIDE 30.7 MMOL/L (24-32); TOTAL PROTEIN 5.8 G/DL (6.4-8.2); eCRCL 63 ML/MIN; eGFR 68 ML/MIN
[2025-02-03 08:22] VITALS: RESP 18; O2SAT 99
[2025-02-03 11:00] VITALS: BP 90/45; PULSE 63; RESP 15; TEMP 97.9; O2SAT 91
--- NOTE | 2025-02-03 19:08 | DISCHARGE SUMMARY-Residence ---
Discharge Summary Providers to CC Resident Creating Document: CANDACE MENDOZA RES ~ Discharge Summary Admission Diagnosis: CHEST PAIN Hospital Course DATE OF ADMISSION: 01/31/25 DATE OF DISCHARGE: 02/03/2025 Hospital course same as mentioned discharge summary. Discharge Diagnosis\Comment: Unstable angina Positive stress test Ruled out ACS Hyperlipidemia Hypertension Hypothyroid Peripheral neuropathy History of CAD AFib status post pacemaker Operations\Procedures: Cardiac catheterization Consultants: Dr. Shultz Complications: Done Condition on DC: Stable Continued Medications: Doxazosin Mesylate (Doxazosin Mesylate) 2 Mg Tablet 1 TAB PO BID for 30 Days, #30 TAB 0 Refills Ezetimibe (Ezetimibe) 10 Mg Tablet 1 TAB PO DAILY Gabapentin (Gabapentin) 100 Mg Capsule 1 CAP PO DAILY Hydrocodone Bit/Acetaminophen (Hydrocodon-Acetaminophen 5-325) 5 Mg-325 Mg Tabl et 1 TAB PO BID PRN for mild pain 1-3 Levothyroxine Sodium (Levothyroxine Sodium) 25 Mcg Tablet 1 TAB PO DAILY Naproxen (Naproxen) 500 Mg Tablet 2 TAB PO BID PRN for mild to moderate pain 1-6, TAB Omeprazole (Omeprazole) 20 Mg Capsule.dr 1 CAP PO DAILY Oxybutynin Chloride (Oxybutynin Chloride ER) 15 Mg Tab.er.24 1 TAB PO HS Rosuvastatin Calcium (Rosuvastatin Calcium) 20 Mg Tablet 1 TAB PO HS Sotalol HCl (Betapace) 80 Mg Tablet 0.5 TAB PO Q12H for 90 Days, #180 TAB 4 Refills Trazodone HCl (Trazodone HCl) 100 Mg Tablet 1 TAB PO HS Discontinued Medications: Metoprolol Tartrate (Metoprolol Tartrate) 25 Mg Tablet 1 TAB PO BID Discharge Summary: As per HPI: 64-year-old female with past medical history of hypertension, hyperlipidemia, COPD, CAD, atrial fibrillation, status post ppm, with a strong family history of coronary artery disease and hyperlipidemia presented to the ER with chief complaints of chest pain. Endorses chest pain around 1232 to 1:00 p.m. on today while she was driving to home after having a constitution party, heavy, constricting type of pain over retrosternum, rated 7- 8/10, on and off. Chest pain is associated with shortness of breathe while having conversation with her , diaphoresis and radiating to throat and jaw. She denied syncope, palpitations, dizziness abdominal pain, abdominal distention, fever, cough, wheeze. She reports swelling of the left foot occasionally. She do reports strong family history of coronary artery disease- quadruple bypass and stents for mother. Her Father had a bypass graft. Her brother is with five-vessel bypass, heart failure, hereditary hypercholesterolemia. Discussed Code status with patient and she wants to be in full code Hospital course: On further evaluation vitals have been stable. EKG did not show any acute ST changes. Her BNP was within normal limits. Was given aspirin 81 metoprolol 25 atorvastatin 80 and ezetimibe 10 along with morphine p.r.n. and nitroglycerin p.r.n.. Lipid profile was done LDL 68 and triglycerides 169. A1c was 6.1. Troponins have been negative. Echo was done which showed an EF of 60- 65%. Lexiscan done showed apical reversible defect. She states that she had the Franchesca can done last year which did show that there was some narrowing and she was being followed by Dr. Reid. She also had coronary angiogram done by Dr. Reid in the past with no PCI. Dr. Shultz on-call presser machine was consulted, she had a cardiac catheterization done: She had scattered 15 20% narrowing in coronaries. No high-grade stenosis noted. Normal left ventriculogram. Was cleared by Cardiology for discharge and was recommended to follow up with her presser machine Dr. Chiki mendoza. This morning she denied having any chest pain, postprocedure she had back pain which is chronic was exacerbated by her lying flat for the procedure, pain better this morning. Her hospital course is uncomplicated she is hemodynamically stable on the day of discharge and her physical exam is as follows: General: Awake and Alert, no acute distress. HEENT: Conjunctiva pink, Sclera clear, Mucus Membranes moist. Neck: Supple without masses and tenderness. Resp: Unlabored. Equal breath sounds bilaterally. Heart: Regular rhythm, normal S1 and S2, no rub, murmur or gallop. Abdomen: Soft and non tender no organomegaly. Normal bowel sounds x4 quadrant normoactive. No guarding or rigidity. Extremities: Normal ROM, no swelling, nontender. No cyanosis,clubbing or edema. 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 Skin: Warm and Dry. Discharge medications can be found above. Patient is being discharged with the advice to follow up with Dr. Leung office. Laboratory Tests Test 02/02/25 06:00 02/03/25 05:39 White Blood Count 6.9 X10'3 10.5 X10'3 Red Blood Count 4.48 X10'6 3.99 X10'6 Hemoglobin 13.2 g/dl 11.6 g/dl Hematocrit 39.3 % 35.4 % Mean Corpuscular Volume 87.8 FL 88.7 FL Mean Corpuscular Hemoglobin 29.6 PG 29.2 PG Mean Corpuscular Hemoglobin Concent 33.7 g/dL 32.9 g/dL Red Cell Distribution Width 13.9 % 14.0 % Platelet Count 307 X10'3 287 X10'3 Mean Platelet Volume 8.5 FL 8.2 FL Neutrophils (%) (Auto) 61.5 % 66.8 % Lymphocytes (%) (Auto) 25.7 % 20.3 % Monocytes (%) (Auto) 8.6 % 10.8 % Eosinophils (%) (Auto) 3.4 % 1.8 % Basophils (%) (Auto) 0.8 % 0.3 % Neutrophils # (Auto) 4.3 X10'3 7.0 X10'3 Lymphocytes # (Auto) 1.8 X10'3 2.1 X10'3 Monocytes # (Auto) 0.6 X10'3 1.1 X10'3 Eosinophils # (Auto) 0.2 X10'3 0.2 X10'3 Basophils # (Auto) 0.1 X10'3 0.0 X10'3 CBC Comment Sodium Level 144 MMOL/L 144 MMOL/L Potassium Level 4.1 MMOL/L 4.3 MMOL/L Chloride Level 107 MMOL/L 107 MMOL/L Carbon Dioxide Level 28.3 MMOL/L 30.7 MMOL/L Anion Gap 9 6 Blood Urea Nitrogen 17 MG/DL 17 MG/DL Creatinine 0.75 MG/DL 0.85 MG/DL Estimated GFR/1.73 m2 78 ML/MIN 68 ML/MIN BUN/Creatinine Ratio 22.7 20.0 Glucose Level 110 MG/DL 105 MG/DL Calcium Level 9.4 MG/DL 8.8 MG/DL Magnesium Level 1.9 MG/DL 1.8 MG/DL Total Bilirubin 0.6 MG/DL 0.7 MG/DL Aspartate Amino Transf (AST/SGOT) 28 U/L 21 U/L Alanine Aminotransferase (ALT/SGPT) 53 U/L 43 U/L Alkaline Phosphatase 94 IU/L 81 IU/L Total Protein 6.9 G/DL 5.8 G/DL Albumin 3.5 G/DL 3.1 G/DL Globulin 3.4 G/DL 2.7 G/DL Albumin/Globulin Ratio 1.0 1.1 Chemistry Comments *Problems/Diagnosis: (1) Chest pain Total Time Spent on D/C: > 30 Minutes Date of Service: Feb 03, 2025 Billing Provider: PHILIP MACKENZIE MD, ELIZABETH, RES Feb 03, 2025 19:02
== END 2025-02-03 11:56 | disposition home or self-care (01) | DRG 287 ==
LOC: ER 13:53 → ED HOLD 19:20 → PCU 3S 22:16
PROVIDERS: ADMIT Internal Medicine Critical Care Medicine; ATTEND Internal Medicine
PROC: 4A02XM4 Measurement of Cardiac Total Activity, External Approach (ICD-10-PCS; 2025-02-01)
PROC: 3E033HZ Introduction of Radioactive Substance into Peripheral Vein, Percutaneous Approach (ICD-10-PCS; 2025-02-01)
PROC: 4A023N7 Measurement of Cardiac Sampling and Pressure, Left Heart, Percutaneous Approach (ICD-10-PCS; principal; 2025-02-02)
PROC: B2111ZZ Fluoroscopy of Multiple Coronary Arteries using Low Osmolar Contrast (ICD-10-PCS; 2025-02-02)
PROC: B2151ZZ Fluoroscopy of Left Heart using Low Osmolar Contrast (ICD-10-PCS; 2025-02-02)
PROC: B41F1ZZ Fluoroscopy of Right Lower Extremity Arteries using Low Osmolar Contrast (ICD-10-PCS; 2025-02-02)
DX: I25.110 Atherosclerotic heart disease of native coronary artery with unstable angina pectoris (principal); I10 Essential (primary) hypertension; E78.5 Hyperlipidemia, unspecified; E03.9 Hypothyroidism, unspecified; I48.91 Unspecified atrial fibrillation; J44.9 Chronic obstructive pulmonary disease, unspecified; G62.9 Polyneuropathy, unspecified; Z95.0 Presence of cardiac pacemaker; Z90.49 Acquired absence of other specified parts of digestive tract
CPT/HCPCS: 36415; 71045; 78452; 80048; 80053; 80061; 83036; 83735; 83880; 84443; 84484; 85025; 85610; 85730; 87081; 93005; 93017; 93306; 93458; 99152; 99153; 99285; A4615; A6258; A9500; C1760; G0378; J0360; J1200; J1644; J2003; J2250; J2405; J2785; J3010; J7030; Q9967